=== PATIENT | male | born 1975 | race African-American/Black ===

== ENCOUNTER 2017-12-24 14:00 | Emergency (ER) | payer OTHER, MEDICAID ==
[~2017-12-24] VITALS: Ht 165.1 cm; Wt 71.0 kg
[2017-12-24] MEDS ORDERED: HYDROCODONE/ACETAMINOPHEN 5/325MG TABLET PO STA (17:27)
[2017-12-24 20:00] VITALS: BP 112/62
== END 2017-12-24 22:01 | disposition home or self-care (01) ==
LOC: ER 14:00
DX: M26.601 Right temporomandibular joint disorder, unspecified (principal); G44.89 Other headache syndrome
CPT/HCPCS: 70450; 99284